=== PATIENT | male | born 1965 | race Caucasian/White ===

== ENCOUNTER 2019-05-13 08:31 | Inpatient (IN) | payer MEDICAID ==
[2019-05-07 15:21] LABS: BASOPHILS # (AUTO) 0.1 X10'3 (0-0.2); BASOPHILS % (AUTO) 1.2 % (0-1); EOSINOPHILS # (AUTO) 0.2 X10'3 (0-0.9); EOSINOPHILS % (AUTO) 3.4 % (0-6); LYMPHOCYTES # (AUTO) 1.6 X10'3 (1.1-4.8); LYMPHOCYTES % (AUTO) 30.7 % (21-51); MEAN CORPUSCULAR HEMOGLOBIN 31.1 PG (27.0-31.0); MEAN CORPUSCULAR HGB CONC 34.2 g/dL (33.0-36.5); MEAN CORPUSCULAR VOLUME 90.9 FL (78-98); MEAN PLATELET VOLUME 7.1 FL (7.4-10.4); MONOCYTES # (AUTO) 0.4 X10'3 (0-0.9); MONOCYTES % (AUTO) 8.7 % (2-12); NEUTROPHILS # (AUTO) 2.8 X10'3 (1.8-7.7); PRE OP HEMATOCRIT 38.5 % (42.0-52.0); PRE OP HEMOGLOBIN 13.2 g/dL (14.0-17.9); PRE OP PLATELET COUNT 283 X10'3 (140-440); RED BLOOD COUNT 4.23 X10'6 (4.70-6.10); RED CELL DISTRIBUTION WIDTH 13.1 % (11.5-14.5)
[2019-05-07 15:47] LABS: ALANINE AMINOTRANSFERASE 26 U/L (12-78); ALBUMIN 3.8 G/DL (3.4-5.0); ALBUMIN/GLOBULIN RATIO 1.3 (1.1-1.5); ALKALINE PHOSPHATASE 84 IU/L (46-116); ANION GAP 7 (8-16); ASPARTATE AMINO TRANSFERASE 18 U/L (10-37); BILIRUBIN,TOTAL 0.7 MG/DL (0.1-1.0); BLOOD UREA NITROGEN 17 MG/DL (7-18); BUN/CREATININE RATIO 17.3 (5.4-32.0); CALCIUM 8.9 MG/DL (8.5-10.1); CHLORIDE 106 MMOL/L (99-107); CREATININE 0.98 MG/DL (0.60-1.10); GLUCOSE 167 MG/DL (70-104); POTASSIUM 4.3 MMOL/L (3.5-5.1); SODIUM 140 MMOL/L (135-145); TOTAL CARBON DIOXIDE 27.5 MMOL/L (24-32); TOTAL PROTEIN 6.8 G/DL (6.4-8.2); eGFR 80 ML/MIN
[~2019-05-13] VITALS: Ht 180.3 cm; Wt 81.3 kg
[2019-05-13] VITALS (19 sets, daily range): BP systolic 103–127; BP diastolic 54–83
[~2019-05-13 08:31] MED LIST: NO HOME MEDS; cefazolin/dext.iso 2gm/100ml 100 ML IV ONE; famotidine 20mg tablet PO ONE; ringers solution, lacted 1,000 ML IV SCH; tranexamic acid inj. 860 MG in normal saline 100ml IV soln 100 ML IV ONE; vancomycin 1500mg/300ml PREMIX 500 ML IV ONE
[2019-05-13] MEDS ORDERED: ketorolac trometh. 30mg/ml inj. ONE (10:26)
[2019-05-13] MEDS ORDERED: ROPIVAcaine 0.5% (5mg/ml) 30ml vial ONE ×2 (10:27→14:59)
[2019-05-13] MEDS ORDERED: MIDAZolam 5mg/5ml vial ONE (11:46)
[2019-05-13] MEDS ORDERED: ringers solution, lacted 1,000 ML IV SCH (12:17)
[2019-05-13] MEDS ORDERED: meperidine/PF 25mg/ml syringe IV PRN ×3 (12:20)
[2019-05-13] MEDS ORDERED: diphenhydrAMINE 50 mg/ml inj IV PRN (12:20)
[2019-05-13] MEDS ORDERED: proCHLORperazine 10 MG/2 ml inj IV PRN (12:20)
[2019-05-13] MEDS ORDERED: ondansetron/PF 4mg/2ml inj IV PRN ×2 (12:20)
[2019-05-13] MEDS ORDERED: morphine 4 MG/ML inj SYRINge IV PRN (12:20)
[2019-05-13] MEDS ORDERED: acetaminophen 1,000mg/100ml IV 100 ML IV PRN (12:20)
[2019-05-13] MEDS ORDERED: morphine 2 MG/ML inj. syringe IV PRN (12:20)
[2019-05-13] MEDS ORDERED: morphine /PF 1mg/ml 10ml inj. ONE (14:11)
[2019-05-13] MEDS ORDERED: propofol inj 20 ML IV ONE ×5 (14:11)
[2019-05-13] MEDS ORDERED: HYDROmorphone 1 mg/ml syringe IV PRN (14:55)
[2019-05-13] MEDS ORDERED: magnesium hydroxide 30ml (MOM) UD suspension PO PRN (14:55)
[2019-05-13] MEDS ORDERED: HYDROmorphone inj. 0.5 MG/0.5 ML DISP.SYRIN IV PRN (14:55)
[2019-05-13] MEDS ORDERED: diphenhydrAMINE 25mg capsule PO PRN ×2 (14:55)
[2019-05-13] MEDS ORDERED: bisacodyl 10mg suppository rectal RC PRN (14:55)
[2019-05-13] MEDS ORDERED: acetaminophen 325mg tablet PO PRN (14:55)
[2019-05-13] MEDS ORDERED: HYDROcodone/acetaminophen 10/325mg tab PO PRN (14:55)
[2019-05-13] MEDS ORDERED: oxyCODONE IR 5mg (immed. release) tablet PO PRN ×2 (14:55)
--- NOTE | 2019-05-13 15:05 | NUR ---
Received from OR via BED , accompanied by Anesthesiologist DR DOUGLAS and report given by Anesthesiolgist. PATIENT WAKING UP, DENIES PAIN, V/S WNL, NEUROVASCULAR CHECKLS INTACT, 18G PIV TO LUE, SCD ON, MONA DRESSING TO LEFT KNEE CDI W/ COLD POWDER PACK TO LEFT KNEE . SENSATIONS AT L3
[2019-05-13] MEDS ORDERED: ROPIVAcaine 0.2%/PF PUMP/bolus 550 ML ADDCANAL SCH (15:12)
[2019-05-13] MEDS ORDERED: ROPIVAcaine 0.2% (10 MG/5 ML) BOLUS INJECTION ADDCANAL PRN (15:15)
[2019-05-13] MEDS ORDERED: ceFAZolin 1GM/D5W- ADD-VANTAGE 50 ML IV SCH (16:00)
--- NOTE | 2019-05-13 16:05 | NUR ---
PATIENT A&OX4, DENIES PAIN, V/S WNL, NEUROVASCULAR CHECKS INTACT, 18G PIV TO LUE, SCD ON, MONA DRESSING TO LEFT KNEE CDI W/ COLD POWDER PACK TO LEFT KNEE . SENSATIONS AT L3. PATIENT TRANSFERED TO ORTHO ROOM WITH ALL BELONGINGS AND HOOKED UP TO MONITORS AND REPORT GIVEN TO PRINTED CIRCUIT BOARD DESIGNER WHO HAS TAKEN OVER PATIENT CARE.
[2019-05-13] MEDS: ondansetron/PF 4mg/2ml inj IV PRN ×2 (16:16→21:56)
[2019-05-13] MEDS ORDERED: tranexamic acid inj. 810 MG in normal saline 100ml IV soln 100 ML IV ONE (17:30)
[2019-05-13] MEDS: ceFAZolin/D5W- 1GM premix 50 ML IV SCH (17:51)
--- NOTE | 2019-05-13 18:30 | NUR ---
Patient in room ORTHO 4013. I have received report from CHRISTINE PALUMBO and had the opportunity to ask questions and assume patient care.
--- NOTE | 2019-05-13 18:32 | NUR ---
Problems reprioritized. Patient report given, questions answered & plan of care reviewed with CHRISTINE CASTILLO.
[2019-05-13] MEDS ORDERED: vancomycin/NS 1 GM ADD-VANTAGE 250 ML IV SCH (20:00)
[2019-05-13] MEDS: acetaminophen 325mg tablet PO SCH (20:55)
[2019-05-13] MEDS ORDERED: sennosides 8.6mg tablet PO SCH (21:00)
[2019-05-13] MEDS: potassium cl 20mEq in 1/2 NS 1,000 ML IV SCH (21:11)
[2019-05-14] MEDS: ceFAZolin/D5W- 1GM premix 50 ML IV SCH (00:07)
[2019-05-14 02:00] VITALS: BP 93/47
[2019-05-14] MEDS: acetaminophen 325mg tablet PO SCH ×2 (02:00→07:19)
[2019-05-14 06:02] VITALS: BP 100/49
[2019-05-14 06:18] LABS: BASOPHILS # (AUTO) 0.1 X10'3 (0-0.2); BASOPHILS % (AUTO) 0.6 % (0-1); EOSINOPHILS % (AUTO) 0.4 % (0-6); HEMATOCRIT 33.9 % (42.0-52.0); HEMOGLOBIN 11.5 g/dl (14.0-17.9); LYMPHOCYTES # (AUTO) 1.7 X10'3 (1.1-4.8); MEAN CORPUSCULAR HEMOGLOBIN 30.9 PG (27.0-31.0); MEAN CORPUSCULAR VOLUME 90.8 FL (78-98); MEAN PLATELET VOLUME 7.2 FL (7.4-10.4); MONOCYTES # (AUTO) 0.7 X10'3 (0-0.9); MONOCYTES % (AUTO) 7.6 % (2-12); NEUTROPHILS # (AUTO) 6.5 X10'3 (1.8-7.7); NEUTROPHILS % (AUTO) 72.4 % (42-75); PLATELET COUNT 234 X10'3 (140-440); RED BLOOD COUNT 3.74 X10'6 (4.70-6.10); RED CELL DISTRIBUTION WIDTH 12.9 % (11.5-14.5); WHITE BLOOD COUNT 8.9 X10'3 (4.5-11.0)
[2019-05-14 06:29] LABS: ANION GAP 5 (8-16); CHLORIDE 107 MMOL/L (99-107); POTASSIUM 4.5 MMOL/L (3.5-5.1); SODIUM 140 MMOL/L (135-145); TOTAL CARBON DIOXIDE 27.9 MMOL/L (24-32)
--- NOTE | 2019-05-14 06:33 | NUR ---
Problems reprioritized. Patient report given, questions answered & plan of care reviewed with CHRISTINE PALUMBO.
--- NOTE | 2019-05-14 06:36 | NUR ---
Patient in room ORTHO 4013B. I have received report from CHRISTINE CASTILLO and had the opportunity to ask questions and assume patient care.
[2019-05-14] MEDS: potassium cl 20mEq in 1/2 NS 1,000 ML IV SCH (07:20)
[2019-05-14] MEDS ORDERED: aspirin 325mg tablet PO SCH (08:30)
[2019-05-14 10:00] VITALS: BP 96/54
--- NOTE | 2019-05-14 11:45 | NUR ---
DC INSTRUCTIONS GIVEN TO PT, HAD OPPORTUNITY TO ASK AND ANSWER QUESTIONS. IV REMOVED, NO COMPLICATIONS. PT DC IN STABLE CONDITION WITH SIG OTHER.
[2019-05-15] MEDS ORDERED: acetaminophen 325mg tablet PO PRN (14:55)
== END 2019-05-14 11:45 | disposition home or self-care (01) | DRG 302 ==
LOC: UNDOADMIN 08:31 → PAS IN 08:31 → EDSTATUS 11:15 → PAS IN 14:51 → ORTHO 4S 16:00
PROVIDERS: ADMIT Orthopaedic Surgery; ATTEND Orthopaedic Surgery
PROC: 8E0YXCZ Robotic Assisted Procedure of Lower Extremity (ICD-10-PCS; 2019-05-13)
PROC: 3E0T3BZ Introduction of Anesthetic Agent into Peripheral Nerves and Plexi, Percutaneous Approach (ICD-10-PCS; 2019-05-13)
PROC: 0SRD0J9 Replacement of Left Knee Joint with Synthetic Substitute, Cemented, Open Approach (ICD-10-PCS; principal; 2019-05-13 11:38)
DX: M17.12 Unilateral primary osteoarthritis, left knee (principal); M21.00 Valgus deformity, not elsewhere classified, unspecified site
CPT/HCPCS: 36415; 80051; 80053; 82948; 85025; 87081; 97110; 97116; 97161; 97530; A4215; A6454; A7000; C1713; C1758; C1776; G0378; J0690; J1885; J2250; J2270; J2405; J2704; J2795; J3370; J3480; J7040; J7120